=== PATIENT | male | born 1990 | race Caucasian/White ===

== ENCOUNTER 2017-12-05 13:24 | Outpatient (CLI) | payer BC | END 2017-12-05 13:25 | disposition home or self-care (01) | LOC: SC 13:24 | PROVIDERS: ATTEND Nurse Practitioner Family | DX: G47.30 Sleep apnea, unspecified (principal); G47.10 Hypersomnia, unspecified; R06.83 Snoring; G47.8 Other sleep disorders; R53.83 Other fatigue | CPT/HCPCS: 99203; 99212 ==

== ENCOUNTER 2018-01-16 13:47 | Outpatient (CLI) | payer BC | END 2018-01-16 13:48 | disposition home or self-care (01) | LOC: SC 13:47 | PROVIDERS: ATTEND Nurse Practitioner Family | DX: R06.83 Snoring (principal) | CPT/HCPCS: 99212; 99214 ==